=== PATIENT | male | born 1980 | race Hispanic/Latino ===

== ENCOUNTER 2016-09-16 05:07 | Emergency (ER) | payer OTHER ==
[2016-09-16 05:15] VITALS: BP 149/83; RESP 18; TEMP 100; O2SAT 98
--- NOTE | 2016-09-16 06:05 | ED PDOC ---
HPI: Psych/Substance Abuse Time Seen by Provider: 09/16/16 05:11 Chief Complaint (Nursing): Anxiety Chief Complaint (Provider): Anxiety History Per: Patient History/Exam Limitations: no limitations Onset/Duration Of Symptoms: Days (2x) Suicide/Self Injury Attempted (Context): None Modifying Factor(s): None Associated Symptoms: Anxiety. denies: Suicidal Thoughts (no homicidal thoughts) Additional Complaint(s): 36 year old male patient with a pertinent medical history of anxiety and IV drug abuse presents to the ED with complaints of anxiety. He reports that he hasn't used his suboxone medication in the past few days because he ran out. He also complains of body aches and chills. He denies feeling febrile or having any suicidal or homicidal ideations. PMD: Soren Capellan MD Past Medical History Reviewed: Historical Data, Nursing Documentation, Vital Signs Vital Signs: Last Vital Signs Temp 100 F H 09/16/16 05:12 Pulse 114 H 09/16/16 05:12 Resp 18 09/16/16 05:12 BP 149/83 09/16/16 05:12 Pulse Ox 98 09/16/16 05:12 - Medical History PMH: Anxiety, Kidney Stones - Family History Family History: States: Unknown Family Hx - Social History Current smoker - smoking cessation education provided: Yes - Immunization History Hx Tetanus Toxoid Vaccination: No Hx Influenza Vaccination: No Hx Pneumococcal Vaccination: No - Home Medications Home Medications: Ambulatory Orders Medication Instructions Recorded Alprazolam [Xanax] 4 mg PO BID 09/15/14 Buprenorphine Hydrochloride/ 8 mg PO DAILY 12/28/14 [Suboxone 8 mg-2 mg] cloNIDine [Catapres] 0.1 mg PO BID PRN #30 tab 05/24/15 Clindamycin [Cleocin] 300 mg PO TID #30 cap 06/13/16 - Allergies Allergies/Adverse Reactions: Allergies Allergy/AdvReac Type Severity Reaction Status Date / Time sulfamethoxazole Allergy RASH Verified 10/13/15 11:32 [From Bactrim] trimethoprim [From Bactrim] Allergy RASH Verified 10/13/15 11:32 Review of Systems ROS Statement: Except As Marked, All Systems Reviewed And Found Negative Constitutional: Positive for: Chills, Other (general body ache). Negative for: Fever Psych: Positive for: Anxiety. Negative for: Suicidal ideation (no homicidal ideations) Physical Exam - Reviewed Nursing Documentation Reviewed: Yes Vital Signs Reviewed: Yes - Physical Exam Appears: Positive for: Well, Non-toxic, No Acute Distress Head Exam: Positive for: ATRAUMATIC, NORMOCEPHALIC Skin: Positive for: Normal Color Eye Exam: Positive for: Normal appearance Neck: Positive for: Normal Cardiovascular/Chest: Positive for: Regular Rate, Rhythm Respiratory: Positive for: Normal Breath Sounds Neurologic/Psych: Positive for: Alert, Oriented (3x), Mood/Affect (not anxious appearing) - ECG O2 Sat by Pulse Oximetry: 98 (RA) Pulse Ox Interpretation: Normal Medical Decision Making Medical Decision Makin:11 Initial impression: 36 year old male with anxiety. Differential diagnoses include but are not limited to anxiety and viral illness. Initial plan: * ativan 3mg PO * ativan 3mg PO * motrin tab 600mg PO * reevaluation 630 Pt. feeling relaxed, feeling "Better". HR 80s. Will d/c home. Scribe Attestation: Documented by Cris Edwards, acting as a scribe for Evin Avitia MD. Provider Scribe Attestation: All medical record entries made by the Scribe were at my direction and personally dictated by me. I have reviewed the chart and agree that the record accurately reflects my personal performance of the history, physical exam, medical decision making, and the department course for this patient. I have also personally directed, reviewed, and agree with the discharge instructions and disposition. Disposition - Clinical Impression Clinical Impression: Anxiety - Disposition Referrals: [facility] [Outside] Disposition Time: 06:30 Condition: STABLE Instructions: Anxiety (ED)
[2016-09-16 06:20] VITALS: PULSE 89
== END 2016-09-16 06:20 | disposition home or self-care (01) ==
LOC: H.ER 05:07
DX: F41.9 Anxiety disorder, unspecified (principal); F17.200 Nicotine dependence, unspecified, uncomplicated

== ENCOUNTER 2017-08-13 19:33 | Emergency (ER) | payer MEDICAID, OTHER ==
[2017-08-13 20:18] VITALS: BP 111/76; PULSE 80; RESP 16; TEMP 98.1; O2SAT 100
[2017-08-13] MEDS ORDERED: Sodium Chloride 0.9% 1,000 ML IV STA (20:34)
--- NOTE | 2017-08-13 20:41 | ED PDOC ---
HPI: Male Pain Time Seen by Provider: 08/13/17 20:21 Chief Complaint (Nursing): Male Genitourinary Chief Complaint (Provider): testicular pain History Per: Patient History/Exam Limitations: no limitations Onset/Duration Of Symptoms: Hrs (1) Current Symptoms Are (Timing): Still Present Quality Of Discomfort: "Pain" Additional Complaint(s): 37 y/o male presents with bilateral testicular pain x 1 hour. Patient states pain woke him from his sleep. Denies fever, nausea/vomiting, abdominal pain, back pain, penile discharge. Patient notes similar symptoms 20 years ago when he had a kidney stone. Past Medical History Reviewed: Historical Data, Nursing Documentation, Vital Signs Vital Signs: Last Vital Signs Temp 98.1 F 08/13/17 20:11 Pulse 80 08/13/17 20:11 Resp 16 08/13/17 20:11 BP 111/76 08/13/17 20:11 Pulse Ox 100 08/13/17 20:11 - Medical History PMH: Anxiety, Kidney Stones - Family History Family History: States: Unknown Family Hx - Immunization History Hx Tetanus Toxoid Vaccination: No Hx Influenza Vaccination: No Hx Pneumococcal Vaccination: No - Home Medications Home Medications: Ambulatory Orders Medication Instructions Recorded Alprazolam [Xanax] 4 mg PO BID 09/15/14 Buprenorphine Hydrochloride/ 8 mg PO DAILY 12/28/14 [Suboxone 8 mg-2 mg] cloNIDine [Catapres] 0.1 mg PO BID PRN #30 tab 05/24/15 Clindamycin [Cleocin] 300 mg PO TID #30 cap 06/13/16 - Allergies Allergies/Adverse Reactions: Allergies Allergy/AdvReac Type Severity Reaction Status Date / Time sulfamethoxazole Allergy RASH Verified 08/13/17 20:11 [From Bactrim] trimethoprim [From Bactrim] Allergy RASH Verified 08/13/17 20:11 Review of Systems ROS Statement: Except As Marked, All Systems Reviewed And Found Negative Genitourinary Male: Positive for: Scrotal Pain Physical Exam - Reviewed Nursing Documentation Reviewed: Yes Vital Signs Reviewed: Yes - Physical Exam Appears: Positive for: Well, Non-toxic, No Acute Distress Head Exam: Positive for: ATRAUMATIC, NORMAL INSPECTION, NORMOCEPHALIC Skin: Positive for: Normal Color Eye Exam: Positive for: Normal appearance Cardiovascular/Chest: Positive for: Regular Rate, Rhythm Respiratory: Positive for: Normal Breath Sounds Gastrointestinal/Abdominal: Positive for: Normal Exam Male Genital Exam: Positive for: testicular tenderness (R), testicular tenderness (L), other (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 Negative for: inguinal tenderness, urethral discharge Extremity: Positive for: Normal ROM - Laboratory Results Result Diagrams: 08/13/17 21:40 08/13/17 21:40 - ECG O2 Sat by Pulse Oximetry: 100 - Progress ED Course And Treament: labs, urine, testes u/s, IV toradol EXAM: US Scrotum CLINICAL HISTORY: 37 years old, male; Pain; Scrotum pain; Additional info: Bilateral testicular pain TECHNIQUE: Real-time ultrasound of the scrotum with color Doppler and image documentation. COMPARISON: No relevant prior studies available. FINDINGS: Right testicle: No mass. No torsion. Left testicle: No mass. No torsion. Epididymides: Unremarkable as visualized. Scrotum: Small left varicocele. IMPRESSION: 1. No definite sonographic evidence of testicular torsion. 2. Incidental/non-acute findings are described above. Upon going to re-evaluate patient, and check if patient gave urine sample to check for blood, patient no longer in exam room. Heplock noted on IV stand. Patient left ED before treatment completed Disposition - Clinical Impression Clinical Impression: Testicular pain - Disposition Disposition: Left W/O Treatment Disposition Time: 22:42 Condition: STABLE
--- NOTE | 2017-08-13 21:45 | US ---
EXAM: US Scrotum CLINICAL HISTORY: 37 years old, male; Pain; Scrotum pain; Additional info: Bilateral testicular pain TECHNIQUE: Real-time ultrasound of the scrotum with color Doppler and image documentation. COMPARISON: No relevant prior studies available. FINDINGS: Right testicle: No mass. No torsion. Left testicle: No mass. No torsion. Epididymides: Unremarkable as visualized. Scrotum: Small left varicocele. IMPRESSION: 1. No definite sonographic evidence of testicular torsion. 2. Incidental/non-acute findings are described above.
[2017-08-13 21:46] LABS: BASO % 0.4 % (0.0-2.0); EOS # 0.2 K/uL (0.0-0.7); EOS % 1.5 % (0.0-4.0); HEMOGLOBIN 12.8 g/dL (12.0-18.0); LYMPH # 1.7 K/uL (1.0-4.3); LYMPH % 15.2 % (20.0-40.0); MEAN CELL VOLUME 88.1 fl (80.0-94.0); MEAN CORPUSCULAR HEMOGLOBIN 29.7 pg (27.0-31.0); MEAN CORPUSCULAR HGB CONC 33.7 g/dL (33.0-37.0); MEAN PLATELET VOLUME 8.3 fl (7.2-11.7); MONO # 0.6 K/uL (0.0-0.8); MONO % 5.7 % (0.0-10.0); NEUT # 8.6 K/uL (1.8-7.0); NEUT % 77.2 % (50.0-75.0); RBC 4.31 Mil/uL (4.40-5.90); RED CELL DISTRIBUTION WIDTH 13.4 % (11.5-14.5); WHITE BLOOD COUNT 11.1 K/uL (4.8-10.8)
[2017-08-13 22:02] LABS: ALB/GLOB RATIO 1.4 (1.0-2.1); ALBUMIN 4.3 g/dL (3.5-5.0); CALCIUM 9.4 mg/dL (8.4-10.2); GFR AFRICAN-AMERICAN > 60; GFR NON-AFRICAN AMERICAN > 60
[2017-08-13 22:03] LABS: ALT/SGPT 19 U/L (21-72); AST/SGOT 40 U/L (17-59); BLOOD UREA NITROGEN 19 mg/dl (9-20)
== END 2017-08-13 22:40 | disposition left against medical advice (07) ==
LOC: H.ER 19:33
DX: N50.82 Scrotal pain (principal); Z87.442 Personal history of urinary calculi; F41.9 Anxiety disorder, unspecified
CPT/HCPCS: 80053; 85025; 93975; 96360; 99282; J1885; J7040

== ENCOUNTER 2017-09-11 01:10 | Emergency (ER) | payer OTHER ==
[2017-09-11 01:32] VITALS: RESP 18; O2SAT 99
[2017-09-11 02:58] VITALS: PULSE 83
--- NOTE | 2017-09-11 03:01 | ED PDOC ---
HPI: Psych/Substance Abuse Time Seen by Provider: 09/11/17 01:35 Chief Complaint (Nursing): Anxiety History Per: Patient History/Exam Limitations: no limitations Onset/Duration Of Symptoms: Hrs Additional Complaint(s): Pt. has former hx of drug abuse on suboxone, states he last took on Saturday and hasn't been able to afford to see his psychiatrist because he doesn't have enough money for visit. States that he feels anxious, has palpitations, but denies chest pain, shortness of breath, SI or HI. Denies alcohol abuse. Past Medical History Reviewed: Historical Data, Nursing Documentation, Vital Signs Vital Signs: Last Vital Signs Temp 98.4 F 09/11/17 01:20 Pulse 83 09/11/17 02:57 Resp 18 09/11/17 01:20 BP 140/82 09/11/17 01:20 Pulse Ox 99 09/11/17 01:20 - Medical History PMH: Anxiety, Kidney Stones - Family History Family History: States: Unknown Family Hx - Immunization History Hx Tetanus Toxoid Vaccination: No Hx Influenza Vaccination: No Hx Pneumococcal Vaccination: No - Home Medications Home Medications: Ambulatory Orders Medication Instructions Recorded Alprazolam [Xanax] 4 mg PO BID 09/15/14 Buprenorphine Hydrochloride/ 8 mg PO DAILY 12/28/14 [Suboxone 8 mg-2 mg] cloNIDine [Catapres] 0.1 mg PO BID PRN #30 tab 05/24/15 Clindamycin [Cleocin] 300 mg PO TID #30 cap 06/13/16 - Allergies Allergies/Adverse Reactions: Allergies Allergy/AdvReac Type Severity Reaction Status Date / Time sulfamethoxazole Allergy RASH Verified 08/13/17 20:11 [From Bactrim] trimethoprim [From Bactrim] Allergy RASH Verified 08/13/17 20:11 Review of Systems ROS Statement: Except As Marked, All Systems Reviewed And Found Negative Psych: Positive for: Anxiety. Negative for: Depression, Psychosis, Suicidal ideation Physical Exam - Reviewed Nursing Documentation Reviewed: Yes Vital Signs Reviewed: Yes - Physical Exam Appears: Positive for: Well, Non-toxic, No Acute Distress Head Exam: Positive for: ATRAUMATIC, NORMAL INSPECTION, NORMOCEPHALIC Skin: Positive for: Normal Color, Warm, DRY Eye Exam: Positive for: EOMI, Normal appearance, PERRL ENT: Positive for: Normal ENT Inspection Neck: Positive for: Normal, Painless ROM Cardiovascular/Chest: Positive for: Regular Rate, Rhythm Respiratory: Positive for: CNT, Normal Breath Sounds Gastrointestinal/Abdominal: Positive for: Normal Exam, Bowel Sounds, Soft Back: Positive for: Normal Inspection Extremity: Positive for: Normal ROM Neurologic/Psych: Positive for: Alert, Oriented, Mood/Affect (Anxious appearing) - ECG O2 Sat by Pulse Oximetry: 99 Medical Decision Making Medical Decision MakinAM Patient here for anxiety related to not having suboxone. Patient requesting IV ativan, compromised to give IM ativan. Will re-eval afterwards for HR/ symptomatic improvement. 3AM HR improved, patient feeling better, advised to f/u w/ PMD/psychiatrist. Disposition - Clinical Impression Clinical Impression: Anxiety attack - Disposition Referrals: Soren Capellan MD [Primary Care Provider] - Disposition Time: 03:00 Condition: IMPROVED Instructions: Anxiety, Adult (DC) Forms: [employer] (Fijian)
[2017-09-11 03:59] VITALS: BP 126/76; TEMP 98.3
== END 2017-09-11 03:59 | disposition home or self-care (01) ==
LOC: H.ER 01:10
DX: F41.9 Anxiety disorder, unspecified (principal)
CPT/HCPCS: 96372; 99282; J2060

== ENCOUNTER 2017-10-18 00:23 | Emergency (ER) | payer OTHER ==
[2017-10-18 00:39] VITALS: RESP 16
[2017-10-18] MEDS ORDERED: Sodium Chloride 0.9% 1,000 ML IV STA (00:49)
--- NOTE | 2017-10-18 01:04 | ED PDOC ---
HPI: Psych/Substance Abuse Time Seen by Provider: 10/18/17 00:33 Chief Complaint (Nursing): Substance Abuse History Per: Patient History/Exam Limitations: no limitations Onset/Duration Of Symptoms: Hrs Current Symptoms Are (Timing): Still Present Additional Complaint(s): Patient has hx of substance abuse, seizure d/o, takes multiple sedative medications (patient can only remember baclofen and neurontin), states he had a long day traveling from [place], states he passed out in the airport because he was so exhausted. Denies chest pain, shortness of breath. Denies illicit drug abuse. Denies injury. Denies SI/HI. States since arrival to ER he's feeling better, just complaining of feeling tired. Past Medical History Reviewed: Historical Data, Nursing Documentation, Vital Signs Vital Signs: Last Vital Signs Temp 98.2 F 10/18/17 00:37 Pulse 102 H 10/18/17 00:37 Resp 16 10/18/17 00:37 BP Pulse Ox 95 10/18/17 00:37 - Medical History PMH: Anxiety, Kidney Stones - Family History Family History: States: Unknown Family Hx - Immunization History Hx Tetanus Toxoid Vaccination: No Hx Influenza Vaccination: No Hx Pneumococcal Vaccination: No - Home Medications Home Medications: Ambulatory Orders Medication Instructions Recorded Alprazolam [Xanax] 4 mg PO BID 09/15/14 Buprenorphine Hydrochloride/ 8 mg PO DAILY 12/28/14 [Suboxone 8 mg-2 mg] cloNIDine [Catapres] 0.1 mg PO BID PRN #30 tab 05/24/15 Clindamycin [Cleocin] 300 mg PO TID #30 cap 06/13/16 - Allergies Allergies/Adverse Reactions: Allergies Allergy/AdvReac Type Severity Reaction Status Date / Time sulfamethoxazole Allergy RASH Verified 08/13/17 20:11 [From Bactrim] trimethoprim [From Bactrim] Allergy RASH Verified 08/13/17 20:11 Review of Systems ROS Statement: Except As Marked, All Systems Reviewed And Found Negative Physical Exam - Reviewed Nursing Documentation Reviewed: Yes Vital Signs Reviewed: Yes - Physical Exam Appears: Positive for: Well, Non-toxic, No Acute Distress Head Exam: Positive for: ATRAUMATIC, NORMAL INSPECTION, NORMOCEPHALIC Skin: Positive for: Normal Color, Warm, DRY Eye Exam: Positive for: EOMI, Normal appearance, PERRL ENT: Positive for: Normal ENT Inspection Neck: Positive for: Normal, Painless ROM Cardiovascular/Chest: Positive for: Regular Rate, Rhythm Respiratory: Positive for: CNT, Normal Breath Sounds Gastrointestinal/Abdominal: Positive for: Normal Exam, Soft Back: Positive for: Normal Inspection Extremity: Positive for: Normal ROM Neurologic/Psych: Positive for: Alert, compotype operator II-XII, Oriented, Mood/Affect (normal ). Negative for: Motor/Sensory Deficits, Cerebellar Tests - ECG O2 Sat by Pulse Oximetry: 95 Pulse Ox Interpretation: Normal Medical Decision Making Medical Decision Makin A/P: Hx of substance abuse, seizure d/o p/w earlier syncopal episode after using neurontin, baclofen, and possibly other drugs -patient improving, vitals stable -patient offered IVF for dehydration and labwork to assess for electrolyte abnormalities -patient states he is feeling well now, wishes to go home and sleep -patient A&O x 3, able to make decisions for himself, well appearing, patient has capacity to refuse treatment -will d/c home, will give referral for outpaient clinic Disposition - Clinical Impression Clinical Impression: Syncope - Patient ED Disposition Is Patient to be Admitted: No - Disposition Referrals: [facility] [Outside] Disposition: Routine/Home Disposition Time: 01:06 Condition: STABLE Instructions: Syncope (Fainting)
[2017-10-18 01:06] VITALS: BP 118/82; PULSE 89; TEMP 98.7
[2017-10-18 01:09] VITALS: O2SAT 98
== END 2017-10-18 01:10 | disposition home or self-care (01) ==
LOC: H.ER 00:23
DX: R55 Syncope and collapse (principal); F20.9 Schizophrenia, unspecified